=== PATIENT | male | born 1955 | race African-American/Black ===

== ENCOUNTER 2019-04-18 13:12 | Inpatient (IN) | payer MEDICAID ==
[~2019-04-18] VITALS: Ht 182.9 cm; Wt 84.8 kg
[2019-04-18] MEDS ORDERED: MORPHINE SULFATE 4 MG/ML CPJ (NOT FOR IM USE) IV STA (13:42)
[2019-04-18] MEDS ORDERED: ONDANSETRON HCL 4MG/2ML INJ IV STA (13:42)
[2019-04-18] MEDS ORDERED: NITROGLYCERIN OINT 1GM/INCH UDPKT TD ONE (13:45)
[2019-04-18] MEDS ORDERED: DILTIAZEM HCL 5MG/ML 5ML VIAL IV ONE (13:45)
[2019-04-18 14:17] LABS: BASOPHILS % 0.9 % (0.0-2.0); EOSINOPHILS % 4.8 % (0.0-5.0); HEMATOCRIT. 36.1 % (42.0-52.0); HEMOGLOBIN. 12.7 g/dL (14.0-18.0); LYMPHOCYTES % 34.3 % (20.0-50.0); MEAN CORPUSCULAR HEMOGLOBIN 35.3 pg (28.0-32.0); MEAN CORPUSCULAR VOLUME 100.3 fL (80.0-94.0); MEAN PLATELET VOLUME 9.4 fl (7.4-10.4); MONOCYTES % 9.3 % (2.0-8.0); NEUTROPHILS % 50.7 % (40.0-76.0); PLATELET 191 x1000/uL (130-400)
[2019-04-18 14:25] LABS: CHLORIDE 112 mEq/L (98-107); PARTIAL THROMBOPLASTIN TIME 34.8 sec (23.4-31.0); PROTHROMBIN TIME 10.5 sec (9.6-11.0)
[2019-04-18 14:32] LABS: ETHANOL BLOOD < 10 mg/dL
[2019-04-18 14:38] LABS: T4 FREE 0.86 ng/dL (0.76-1.46)
[2019-04-18] MEDS ORDERED: POTASSIUM CHLORIDE 20MEQ TABLET SR PO ONE (14:45)
[2019-04-18] MEDS ORDERED: FUROSEMIDE 20MG/2ML VIAL IVP ONE (14:45)
[2019-04-18] MEDS ORDERED: ENOXAPARIN 100MG/ML SYR SUBCUT ONE (15:00)
[2019-04-18 16:29] LABS: *AMPHETAMINES SCREEN URINE NEGATIVE (NEGATIVE); *BARBITURATES SCREEN URINE NEGATIVE (NEGATIVE); *BENZODIAZEPINES SCREEN URINE NEGATIVE (NEGATIVE); *COCAINE SCREEN URINE PRESUMTIVE POSITIVE (NEGATIVE)
[2019-04-18 16:30] LABS: CANNABINOID URINE SCREEN PRESUMTIVE POSITIVE (NEGATIVE); METHADONE URINE SCREEN NEGATIVE (NEGATIVE); OPIATES URINE SCREEN PRESUMTIVE POSITIVE (NEGATIVE); PHENCYCLIDINE URINE SCREEN NEGATIVE (NEGATIVE)
[2019-04-18] MEDS ORDERED: QUET300T2 MT (17:59)
[2019-04-18] MEDS ORDERED: PARO-41 MT (17:59)
[2019-04-18] MEDS ORDERED: CLONIDINE 0.1MG TABLET PO PRN (18:45)
[2019-04-18] MEDS ORDERED: MAGNESIUM/ALUMINUM HYDROXIDE/SIMETHICONE 30ML UDC PO PRN (18:45)
[2019-04-18] MEDS ORDERED: HYDROCODONE/ACETAMINOPHEN 5/325MG TABLET PO PRN (18:45)
[2019-04-18] MEDS ORDERED: ONDANSETRON HCL 4MG/2ML INJ IV PRN (18:45)
[2019-04-18] MEDS ORDERED: DOCUSATE SODIUM 100MG CAPSULE PO PRN (18:45)
[2019-04-18] MEDS ORDERED: GUAIFENESIN 200MG/10ML SUGAR FREE UDC PO PRN (18:45)
[2019-04-18] MEDS ORDERED: ACETAMINOPHEN 325MG TABLET PO PRN (18:45)
[2019-04-18] MEDS ORDERED: DILTIAZEM HCL 5MG/ML 5ML VIAL IV NR (19:00)
[2019-04-18 23:15] VITALS: BP 119/78
[2019-04-18 23:28] LABS: CREATINE KINASE 231 IU/L (39-308)
[2019-04-19] VITALS: BP 119/78
[2019-04-19 04:00] VITALS: BP 131/90
[2019-04-19 06:32] LABS: BASOPHILS % 0.9 % (0.0-2.0); EOSINOPHILS % 5.4 % (0.0-5.0); HEMATOCRIT. 38.3 % (42.0-52.0); HEMOGLOBIN. 13.2 g/dL (14.0-18.0); LYMPHOCYTES % 46.9 % (20.0-50.0); MEAN CORPUSCULAR HEMOGLOBIN 34.7 pg (28.0-32.0); MEAN CORPUSCULAR VOLUME 100.3 fL (80.0-94.0); MEAN PLATELET VOLUME 9.9 fl (7.4-10.4); MONOCYTES % 9.7 % (2.0-8.0); NEUTROPHILS % 37.1 % (40.0-76.0); PLATELET 198 x1000/uL (130-400); RED BLOOD CELL COUNT 3.82 mill/uL (4.7-6.1); RED CELL DISTRIBUTION WIDTH 13.9 % (11.6-14.6)
[2019-04-19 07:13] LABS: CHLORIDE 106 mEq/L (98-107)
[2019-04-19 07:24] LABS: CREATINE KINASE 209 IU/L (39-308)
[2019-04-19 07:25] LABS: HDL CHOLESTEROL 77 mg/dL (40-59)
[2019-04-19 07:26] LABS: LDL CHOLESTEROL 62 mg/dL (5-100)
[2019-04-19 08:39] VITALS: BP 136/97
[2019-04-19] MEDS: METOPROLOL TARTRATE 25MG TABLET PO SCH ×2 (09:20→21:00)
[2019-04-19 11:50] VITALS: BP 109/77
[2019-04-19] MEDS: QUETIAPINE FUMARATE 50MG TABLET PO SCH (12:07)
[2019-04-19] MEDS: PAROXETINE HCL 10MG TABLET PO SCH (12:07)
[2019-04-19] MEDS: NICOTINE 21MG PATCH TD SCH (12:07)
[2019-04-19] MEDS: APIXABAN 5 MG TABLET PO SCH ×2 (12:07→17:49)
[2019-04-19] MEDS: DILTIAZEM HCL 30MG TABLET PO SCH ×2 (12:08→17:45)
[2019-04-19 15:29] VITALS: BP 101/65
[2019-04-19 20:00] VITALS: BP 105/73
[2019-04-19] MEDS ORDERED: ENOXAPARIN 40MG/0.4ML SYR SUBCUT SCH (21:00)
[2019-04-20] VITALS: BP 101/63
[2019-04-20 04:00] VITALS: BP 153/103
[2019-04-20] MEDS: MORPHINE SULFATE 2 MG/ML CPJ (NOT FOR IM USE) IV PRN (05:31)
[2019-04-20] MEDS: DILTIAZEM HCL 30MG TABLET PO SCH ×4 (05:55→18:00)
[2019-04-20 08:00] VITALS: BP 139/61
[2019-04-20] MEDS: PAROXETINE HCL 10MG TABLET PO SCH (10:20)
[2019-04-20] MEDS: QUETIAPINE FUMARATE 50MG TABLET PO SCH (10:20)
[2019-04-20] MEDS: APIXABAN 5 MG TABLET PO SCH ×2 (10:20→17:33)
[2019-04-20] MEDS: METOPROLOL TARTRATE 25MG TABLET PO SCH ×2 (10:21→20:33)
[2019-04-20] MEDS: NICOTINE 21MG PATCH TD SCH (10:28)
[2019-04-20 12:00] VITALS: BP 94/55
[2019-04-20 16:00] VITALS: BP 111/62
[2019-04-20 20:28] VITALS: BP 110/66
[2019-04-20] MEDS: POTASSIUM CHLORIDE 20MEQ TABLET SR PO SCH (20:33)
[2019-04-21 00:12] VITALS: BP 112/74
[2019-04-21] MEDS: DILTIAZEM HCL 30MG TABLET PO SCH ×2 (00:47→06:00)
[2019-04-21 04:00] VITALS: BP 110/70
[2019-04-21] MEDS: MORPHINE SULFATE 2 MG/ML CPJ (NOT FOR IM USE) IV PRN (05:09)
[2019-04-21 07:06] LABS: CHLORIDE 108 mEq/L (98-107)
[2019-04-21 07:11] LABS: BASOPHILS % 0.7 % (0.0-2.0); EOSINOPHILS % 3.2 % (0.0-5.0); HEMATOCRIT. 38.4 % (42.0-52.0); HEMOGLOBIN. 13.1 g/dL (14.0-18.0); LYMPHOCYTES % 33.4 % (20.0-50.0); MEAN CORPUSCULAR HEMOGLOBIN 34.5 pg (28.0-32.0); MEAN CORPUSCULAR VOLUME 101.2 fL (80.0-94.0); MEAN PLATELET VOLUME 9.6 fl (7.4-10.4); MONOCYTES % 13.3 % (2.0-8.0); NEUTROPHILS % 49.4 % (40.0-76.0); PLATELET 202 x1000/uL (130-400); RED BLOOD CELL COUNT 3.79 mill/uL (4.7-6.1); RED CELL DISTRIBUTION WIDTH 13.7 % (11.6-14.6)
[2019-04-21] MEDS: NICOTINE 21MG PATCH TD SCH (09:39)
[2019-04-21] MEDS: APIXABAN 5 MG TABLET PO SCH (09:39)
[2019-04-21] MEDS: POTASSIUM CHLORIDE 20MEQ TABLET SR PO SCH (09:40)
[2019-04-21] MEDS: PAROXETINE HCL 10MG TABLET PO SCH (09:40)
[2019-04-21] MEDS: QUETIAPINE FUMARATE 50MG TABLET PO SCH (09:41)
[2019-04-21] MEDS: METOPROLOL TARTRATE 25MG TABLET PO SCH (09:42)
[2019-04-21 11:56] VITALS: BP 126/96
== END 2019-04-21 15:01 | disposition home or self-care (01) | DRG 201 ==
LOC: ER 13:12 → ENRESERV 21:45 → 6WST 22:56
PROVIDERS: ADMIT Hospitalist; ATTEND Hospitalist
DX: I48.91 Unspecified atrial fibrillation (principal); D68.59 Other primary thrombophilia; E87.5 Hyperkalemia; I48.92 Unspecified atrial flutter; E87.6 Hypokalemia; F43.10 Post-traumatic stress disorder, unspecified; I10 Essential (primary) hypertension; F41.0 Panic disorder [episodic paroxysmal anxiety]; F12.10 Cannabis abuse, uncomplicated; F14.10 Cocaine abuse, uncomplicated; Z71.51 Drug abuse counseling and surveillance of drug abuser; Z79.899 Other long term (current) drug therapy
CPT/HCPCS: 36415; 71045; 80053; 80061; 80305; 80320; 82550; 83735; 83880; 84439; 84443; 84481; 84484; 85025; 93005; 93306; 93970; 99291; J1650; J1940; J2270; J2405; J3490; G0480

== ENCOUNTER 2019-10-03 20:59 | Inpatient (IN) | payer MEDICAID ==
[~2019-10-03] VITALS: Ht 182.9 cm; Wt 77.6 kg
[~2019-10-03 20:59] MED LIST: PARO-41 MT; QUET300T2 MT
[2019-10-03 22:11] LABS: BASOPHILS % 0.2 % (0.0-2.0); HEMATOCRIT. 39.6 % (42.0-52.0); HEMOGLOBIN. 13.5 g/dL (14.0-18.0); LYMPHOCYTES % 13.6 % (20.0-50.0); MEAN CORPUSCULAR HEMOGLOBIN 34.6 pg (28.0-32.0); MEAN CORPUSCULAR VOLUME 101.7 fL (80.0-94.0); MEAN PLATELET VOLUME 9.2 fl (7.4-10.4); MONOCYTES % 8.3 % (2.0-8.0); NEUTROPHILS % 77.9 % (40.0-76.0); PLATELET 172 x1000/uL (130-400)
[2019-10-03 22:18] LABS: CHLORIDE 103 mEq/L (98-107)
[2019-10-03 22:22] LABS: INR 1.1; PARTIAL THROMBOPLASTIN TIME 35.8 sec (23.4-31.0); PROTHROMBIN TIME 11.6 sec (9.6-11.0)
[2019-10-03] MEDS ORDERED: SODIUM CHLORIDE 0.9% 500 ML IV ONE (22:30)
[2019-10-03] MEDS ORDERED: CEFTRIAXONE 1 G PREMIX 50 ML IV ONE (23:00)
[2019-10-03 23:51] LABS: CLARITY URINE CLEAR (CLEAR); COLOR URINE DARK YELLOW (YELLOW); KETONES URINE NEGATIVE (NEGATIVE); LEUKOCYTE ESTERASE URINE NEGATIVE (NEGATIVE); NITRITE URINE NEGATIVE (NEGATIVE); OCCULT BLOOD URINE NEGATIVE (NEGATIVE); PH URINE 6.5 (4.5-8.0); PROTEIN URINE TRACE (NEGATIVE)
[2019-10-04 00:04] LABS: *AMPHETAMINES SCREEN URINE NEGATIVE (NEGATIVE); *BARBITURATES SCREEN URINE NEGATIVE (NEGATIVE); *BENZODIAZEPINES SCREEN URINE NEGATIVE (NEGATIVE); *COCAINE SCREEN URINE PRESUMTIVE POSITIVE (NEGATIVE); CANNABINOID URINE SCREEN PRESUMTIVE POSITIVE (NEGATIVE); METHADONE URINE SCREEN NEGATIVE (NEGATIVE); OPIATES URINE SCREEN NEGATIVE (NEGATIVE); PHENCYCLIDINE URINE SCREEN NEGATIVE (NEGATIVE)
[2019-10-04] MEDS ORDERED: AZITHROMYCIN 500 MG in DEXT 5% WATER 250 ML IV SCH (00:30)
[2019-10-04] MEDS ORDERED: ASPIRIN 325MG EC TABLET PO ONE (01:00)
[2019-10-04] MEDS ORDERED: SODIUM CHLORIDE 0.9% 500 ML IV ONE (01:00)
[2019-10-04] MEDS ORDERED: HYDROCODONE/ACETAMINOPHEN 5/325MG TABLET PO ONE (02:30)
[2019-10-04] MEDS ORDERED: CLONIDINE 0.1MG TABLET PO PRN (09:15)
[2019-10-04] MEDS ORDERED: ONDANSETRON HCL 4MG/2ML INJ IV PRN (09:15)
[2019-10-04] MEDS ORDERED: DIPHENHYDRAMINE 50MG/ML VIAL IV PRN (09:15)
[2019-10-04] MEDS ORDERED: CEFTRIAXONE 1 G PREMIX 50 ML IV SCH (10:00)
[2019-10-04] MEDS: HYDROCODONE/ACETAMINOPHEN 5/325MG TABLET PO PRN ×2 (10:30→17:36)
[2019-10-04] MEDS: ENOXAPARIN 40MG/0.4ML SYR SUBCUT SCH (10:30)
[2019-10-04] MEDS ORDERED: DEXTROSE 50% WATER 50ML SYRINGE IV PRN (11:45)
[2019-10-04] MEDS: INSULIN LISPRO 100 UNITS/ML SUBCUT SCH ×3 (13:02→21:00)
[2019-10-04] MEDS: BLOOD SUGAR DIAGNOSTIC STRIP TEST SCH ×3 (13:02→22:36)
[2019-10-04] MEDS ORDERED: ALBUTEROL 6.7GM HFA INHALER ORI PRN (16:30)
[2019-10-04 18:20] LABS: FOLIC ACID (FOLATE) SERUM 6.6 ng/mL (>5.38)
[2019-10-04 20:30] VITALS: BP 120/80
[2019-10-04] MEDS: GUAIFENESIN 600MG ER TABLET PO SCH (21:01)
[2019-10-04] MEDS: QUETIAPINE FUMARATE 50MG TABLET PO SCH (23:15)
[2019-10-05] VITALS: BP 95/46
[2019-10-05] MEDS ORDERED: AZITHROMYCIN 500 MG in DEXT 5% WATER 250 ML IV SCH ×2 (01:00→09:00)
[2019-10-05] MEDS: IPRATROPIUM BROMIDE (0.02%) 0.5MG/2.5ML NEB HHN SCH (02:03)
[2019-10-05 04:00] VITALS: BP 101/59
[2019-10-05] MEDS: ACETAMINOPHEN 325MG TABLET PO PRN ×2 (04:55→17:17)
[2019-10-05 06:32] LABS: CHLORIDE 103 mEq/L (98-107)
[2019-10-05 06:37] LABS: HEMATOCRIT. 34.9 % (42.0-52.0); HEMOGLOBIN. 12.1 g/dL (14.0-18.0); MEAN CORPUSCULAR HEMOGLOBIN 34.9 pg (28.0-32.0); MEAN PLATELET VOLUME 10.1 fl (7.4-10.4); PLATELET 149 x1000/uL (130-400); RED BLOOD CELL COUNT 3.46 mill/uL (4.7-6.1)
[2019-10-05 06:39] LABS: LDL CHOLESTEROL 12 mg/dL (5-100)
[2019-10-05 06:40] LABS: HDL CHOLESTEROL 70 mg/dL (40-59)
[2019-10-05] MEDS: BLOOD SUGAR DIAGNOSTIC STRIP TEST SCH ×4 (07:40→21:25)
[2019-10-05 08:00] VITALS: BP 110/73
[2019-10-05] MEDS: INSULIN LISPRO 100 UNITS/ML SUBCUT SCH ×4 (08:10→21:00)
[2019-10-05] MEDS ORDERED: CEFTRIAXONE 1,000 MG in DEXTROSE 5% WATER 50 ML IV SCH (10:00)
[2019-10-05] MEDS: PAROXETINE HCL 10MG TABLET PO SCH (10:22)
[2019-10-05] MEDS: GUAIFENESIN 600MG ER TABLET PO SCH ×2 (10:22→20:47)
[2019-10-05] MEDS: ENOXAPARIN 40MG/0.4ML SYR SUBCUT SCH (10:23)
[2019-10-05] MEDS: CEFTRIAXONE 1,000 MG in DEXTROSE 5% WATER 50 ML IV SCH (10:23)
[2019-10-05] MEDS ORDERED: ENOXAPARIN 40MG/0.4ML SYR SUBCUT SCH (11:30)
[2019-10-05 12:00] VITALS: BP 120/69
[2019-10-05] MEDS ORDERED: POTASSIUM CHLORIDE 20MEQ TABLET SR PO SCH (13:30)
[2019-10-05] MEDS: DILTIAZEM HCL 60MG TABLET PO SCH ×2 (13:38→17:17)
[2019-10-05 13:57] LABS: PLATELET ESTIMATE NORMAL
[2019-10-05 16:00] VITALS: BP 105/68
[2019-10-05] MEDS: DIGOXIN 250MCG TABLET PO SCH (17:17)
[2019-10-05] MEDS ORDERED: IPRATROPIUM BROMIDE (0.02%) 0.5MG/2.5ML NEB HHN PRN (17:45)
[2019-10-05 20:00] VITALS: BP 93/58
[2019-10-05] MEDS: QUETIAPINE FUMARATE 50MG TABLET PO SCH (20:47)
[2019-10-05] MEDS: ENOXAPARIN 80MG/0.8ML SYR SUBCUT SCH (20:47)
[2019-10-06] VITALS: BP 103/59
[2019-10-06 04:00] VITALS: BP 124/81
[2019-10-06 05:26] LABS: BASOPHILS % 0.2 % (0.0-2.0); EOSINOPHILS % 1.6 % (0.0-5.0); HEMATOCRIT. 32.9 % (42.0-52.0); HEMOGLOBIN. 11.4 g/dL (14.0-18.0); LYMPHOCYTES % 8.1 % (20.0-50.0); MEAN CORPUSCULAR VOLUME 101.2 fL (80.0-94.0); MEAN PLATELET VOLUME 10.1 fl (7.4-10.4); MONOCYTES % 4.4 % (2.0-8.0); NEUTROPHILS % 85.7 % (40.0-76.0); PLATELET 167 x1000/uL (130-400); RED BLOOD CELL COUNT 3.25 mill/uL (4.7-6.1); RED CELL DISTRIBUTION WIDTH 13.9 % (11.6-14.6)
[2019-10-06] MEDS: DILTIAZEM HCL 60MG TABLET PO SCH ×4 (05:27→17:03)
[2019-10-06 05:29] LABS: CHLORIDE 104 mEq/L (98-107)
[2019-10-06] MEDS: BLOOD SUGAR DIAGNOSTIC STRIP TEST SCH ×4 (06:20→20:24)
[2019-10-06] MEDS: INSULIN LISPRO 100 UNITS/ML SUBCUT SCH ×4 (06:20→20:27)
[2019-10-06 08:00] VITALS: BP 111/69
[2019-10-06] MEDS: ENOXAPARIN 80MG/0.8ML SYR SUBCUT SCH (08:27)
[2019-10-06] MEDS: ACETAMINOPHEN 325MG TABLET PO PRN ×2 (08:28→17:03)
[2019-10-06] MEDS: GUAIFENESIN 600MG ER TABLET PO SCH ×2 (08:28→20:07)
[2019-10-06] MEDS: PAROXETINE HCL 10MG TABLET PO SCH (08:28)
[2019-10-06] MEDS: IPRATROPIUM BROMIDE (0.02%) 0.5MG/2.5ML NEB HHN SCH ×3 (10:16→20:50)
[2019-10-06] MEDS: CEFTRIAXONE 1,000 MG in DEXTROSE 5% WATER 50 ML IV SCH (11:18)
[2019-10-06 12:00] VITALS: BP 100/60
[2019-10-06 13:10] LABS: HIV SCREEN 4G Non Reactive (Non Reactive)
[2019-10-06 16:52] VITALS: BP 126/64
[2019-10-06] MEDS: DIGOXIN 250MCG TABLET PO SCH (17:03)
[2019-10-06] MEDS: APIXABAN 5 MG TABLET PO SCH (17:03)
[2019-10-06 20:00] VITALS: BP 128/77
[2019-10-06] MEDS: QUETIAPINE FUMARATE 50MG TABLET PO SCH (20:08)
[2019-10-06] MEDS: HYDROCODONE/ACETAMINOPHEN 5/325MG TABLET PO PRN (20:08)
[2019-10-07] VITALS: BP 142/80
[2019-10-07] MEDS: DILTIAZEM HCL 60MG TABLET PO SCH ×4 (01:00→16:34)
[2019-10-07] MEDS: IPRATROPIUM BROMIDE (0.02%) 0.5MG/2.5ML NEB HHN SCH ×4 (02:03→21:08)
[2019-10-07 04:00] VITALS: BP 122/75
[2019-10-07] MEDS: ACETAMINOPHEN 325MG TABLET PO PRN ×3 (04:26→19:57)
[2019-10-07] MEDS: BLOOD SUGAR DIAGNOSTIC STRIP TEST SCH ×4 (06:42→21:14)
[2019-10-07] MEDS: INSULIN LISPRO 100 UNITS/ML SUBCUT SCH ×4 (06:42→21:19)
[2019-10-07 07:26] LABS: BASOPHILS % 0.3 % (0.0-2.0); EOSINOPHILS % 0.8 % (0.0-5.0); HEMATOCRIT. 33.7 % (42.0-52.0); HEMOGLOBIN. 11.6 g/dL (14.0-18.0); LYMPHOCYTES % 9.5 % (20.0-50.0); MEAN CORPUSCULAR HEMOGLOBIN 34.9 pg (28.0-32.0); MEAN CORPUSCULAR VOLUME 101.2 fL (80.0-94.0); MEAN PLATELET VOLUME 9.7 fl (7.4-10.4); MONOCYTES % 12.6 % (2.0-8.0); NEUTROPHILS % 76.8 % (40.0-76.0); PLATELET 202 x1000/uL (130-400); RED BLOOD CELL COUNT 3.33 mill/uL (4.7-6.1); RED CELL DISTRIBUTION WIDTH 14.1 % (11.6-14.6)
[2019-10-07 07:58] LABS: CHLORIDE 106 mEq/L (98-107)
[2019-10-07 08:00] VITALS: BP 100/65
[2019-10-07] MEDS: GUAIFENESIN 600MG ER TABLET PO SCH ×2 (08:22→21:33)
[2019-10-07] MEDS: APIXABAN 5 MG TABLET PO SCH ×2 (08:22→16:33)
[2019-10-07] MEDS: PAROXETINE HCL 10MG TABLET PO SCH (08:23)
[2019-10-07 08:38] LABS: DIGOXIN 0.5 ng/mL (0.9-2.0)
[2019-10-07] MEDS: CEFTRIAXONE 1,000 MG in DEXTROSE 5% WATER 50 ML IV SCH (09:55)
[2019-10-07 12:00] VITALS: BP 138/78
[2019-10-07 16:00] VITALS: BP 133/90
[2019-10-07] MEDS: DIGOXIN 250MCG TABLET PO SCH (16:34)
[2019-10-07 20:00] VITALS: BP 144/85
[2019-10-07] MEDS: QUETIAPINE FUMARATE 50MG TABLET PO SCH (21:28)
[2019-10-08] VITALS: BP 117/74
[2019-10-08] MEDS: CEFAZOLIN 2,000 MG in DEXT 5% WATER 100 ML IV SCH ×4 (00:19→21:05)
[2019-10-08] MEDS: DILTIAZEM HCL 60MG TABLET PO SCH ×4 (00:19→18:27)
[2019-10-08] MEDS: IPRATROPIUM BROMIDE (0.02%) 0.5MG/2.5ML NEB HHN SCH ×5 (01:22→21:31)
[2019-10-08 04:00] VITALS: BP 118/61
[2019-10-08] MEDS: ACETAMINOPHEN 325MG TABLET PO PRN ×2 (05:49→12:24)
[2019-10-08] MEDS: BLOOD SUGAR DIAGNOSTIC STRIP TEST SCH ×4 (06:03→20:43)
[2019-10-08] MEDS: INSULIN LISPRO 100 UNITS/ML SUBCUT SCH ×4 (06:03→20:43)
[2019-10-08 06:58] LABS: BASOPHILS % 0.4 % (0.0-2.0); EOSINOPHILS % 0.8 % (0.0-5.0); HEMATOCRIT. 34.2 % (42.0-52.0); HEMOGLOBIN. 11.7 g/dL (14.0-18.0); LYMPHOCYTES % 8.6 % (20.0-50.0); MEAN CORPUSCULAR HEMOGLOBIN 34.4 pg (28.0-32.0); MEAN CORPUSCULAR VOLUME 100.3 fL (80.0-94.0); MEAN PLATELET VOLUME 9.9 fl (7.4-10.4); MONOCYTES % 14.8 % (2.0-8.0); NEUTROPHILS % 75.4 % (40.0-76.0); PLATELET 225 x1000/uL (130-400); RED BLOOD CELL COUNT 3.41 mill/uL (4.7-6.1); RED CELL DISTRIBUTION WIDTH 13.8 % (11.6-14.6)
[2019-10-08 07:11] LABS: CHLORIDE 104 mEq/L (98-107)
[2019-10-08 08:00] VITALS: BP 126/68
[2019-10-08] MEDS: PAROXETINE HCL 10MG TABLET PO SCH (09:19)
[2019-10-08] MEDS: APIXABAN 5 MG TABLET PO SCH ×2 (09:19→17:40)
[2019-10-08] MEDS: GUAIFENESIN 600MG ER TABLET PO SCH ×2 (09:19→20:43)
[2019-10-08 11:46] VITALS: BP 118/82
[2019-10-08 16:00] VITALS: BP 131/65
[2019-10-08] MEDS: DIGOXIN 250MCG TABLET PO SCH (18:27)
[2019-10-08] MEDS: QUETIAPINE FUMARATE 50MG TABLET PO SCH (20:43)
[2019-10-08 20:44] VITALS: BP 133/88
[2019-10-09] VITALS (7 sets, daily range): BP systolic 118–153; BP diastolic 64–96
[2019-10-09] MEDS: DILTIAZEM HCL 60MG TABLET PO SCH ×5 (00:18→23:28)
[2019-10-09] MEDS: CEFAZOLIN 2,000 MG in DEXT 5% WATER 100 ML IV SCH ×3 (05:39→22:48)
[2019-10-09] MEDS: BLOOD SUGAR DIAGNOSTIC STRIP TEST SCH (05:42)
[2019-10-09] MEDS: INSULIN LISPRO 100 UNITS/ML SUBCUT SCH (05:50)
[2019-10-09 07:06] LABS: CHLORIDE 103 mEq/L (98-107)
[2019-10-09 07:10] LABS: HEMATOCRIT. 33.2 % (42.0-52.0); HEMOGLOBIN. 11.4 g/dL (14.0-18.0); MEAN CORPUSCULAR HEMOGLOBIN 34.4 pg (28.0-32.0); MEAN CORPUSCULAR VOLUME 100.1 fL (80.0-94.0); MEAN PLATELET VOLUME 9.4 fl (7.4-10.4); PLATELET 249 x1000/uL (130-400); RED BLOOD CELL COUNT 3.32 mill/uL (4.7-6.1); RED CELL DISTRIBUTION WIDTH 14.5 % (11.6-14.6)
[2019-10-09] MEDS: APIXABAN 5 MG TABLET PO SCH ×2 (08:39→18:41)
[2019-10-09] MEDS: ACETAMINOPHEN 325MG TABLET PO PRN (08:40)
[2019-10-09] MEDS: PAROXETINE HCL 10MG TABLET PO SCH (08:40)
[2019-10-09] MEDS: IPRATROPIUM BROMIDE (0.02%) 0.5MG/2.5ML NEB HHN SCH ×3 (08:40→20:36)
[2019-10-09] MEDS: GUAIFENESIN 600MG ER TABLET PO SCH ×2 (08:40→20:27)
[2019-10-09 13:06] LABS: PLATELET ESTIMATE NORMAL
[2019-10-09] MEDS: DIGOXIN 250MCG TABLET PO SCH (18:41)
[2019-10-09] MEDS: QUETIAPINE FUMARATE 50MG TABLET PO SCH (20:27)
[2019-10-09] MEDS ORDERED: DOCUSATE SODIUM 250MG CAPSULE PO PRN (21:30)
[2019-10-09] MEDS ORDERED: HYDROCODONE/ACETAMINOPHEN 5/325MG TABLET PO PRN (21:30)
[2019-10-10] MEDS: IPRATROPIUM BROMIDE (0.02%) 0.5MG/2.5ML NEB HHN SCH ×4 (02:16→20:03)
[2019-10-10 04:00] VITALS: BP 94/53
[2019-10-10] MEDS: CEFAZOLIN 2,000 MG in DEXT 5% WATER 100 ML IV SCH ×3 (05:30→21:00)
[2019-10-10] MEDS: DILTIAZEM HCL 60MG TABLET PO SCH ×4 (05:30→17:10)
[2019-10-10 07:04] LABS: BASOPHILS % 0.5 % (0.0-2.0); HEMATOCRIT. 37.3 % (42.0-52.0); HEMOGLOBIN. 12.6 g/dL (14.0-18.0); LYMPHOCYTES % 15.6 % (20.0-50.0); MEAN CORPUSCULAR VOLUME 100.8 fL (80.0-94.0); MEAN PLATELET VOLUME 9.4 fl (7.4-10.4); NEUTROPHILS % 72.9 % (40.0-76.0); PLATELET 339 x1000/uL (130-400); RED BLOOD CELL COUNT 3.71 mill/uL (4.7-6.1); RED CELL DISTRIBUTION WIDTH 14.1 % (11.6-14.6)
[2019-10-10 07:15] LABS: CHLORIDE 102 mEq/L (98-107)
[2019-10-10 08:00] VITALS: BP 133/78
[2019-10-10] MEDS: GUAIFENESIN 600MG ER TABLET PO SCH ×2 (08:38→20:59)
[2019-10-10] MEDS: APIXABAN 5 MG TABLET PO SCH ×2 (08:38→17:10)
[2019-10-10] MEDS: PAROXETINE HCL 10MG TABLET PO SCH (08:38)
[2019-10-10 12:01] VITALS: BP 133/67
[2019-10-10] MEDS: ACETAMINOPHEN 325MG TABLET PO PRN (12:38)
[2019-10-10] MEDS ORDERED: SODIUM CHLORIDE 0.9% 1,000 ML IV SCH (14:00)
[2019-10-10 16:00] VITALS: BP 124/75
[2019-10-10] MEDS: DIGOXIN 250MCG TABLET PO SCH (17:10)
[2019-10-10 20:00] VITALS: BP 127/85
[2019-10-10] MEDS: QUETIAPINE FUMARATE 50MG TABLET PO SCH (20:59)
[2019-10-11] VITALS: BP 101/66
[2019-10-11 04:00] VITALS: BP 118/85
[2019-10-11] MEDS: DILTIAZEM HCL 60MG TABLET PO SCH ×4 (05:46→17:16)
[2019-10-11] MEDS: CEFAZOLIN 2,000 MG in DEXT 5% WATER 100 ML IV SCH ×3 (05:46→21:13)
[2019-10-11 06:36] LABS: BASOPHILS % 0.6 % (0.0-2.0); EOSINOPHILS % 1.9 % (0.0-5.0); HEMATOCRIT. 35.5 % (42.0-52.0); HEMOGLOBIN. 12.1 g/dL (14.0-18.0); LYMPHOCYTES % 15.7 % (20.0-50.0); MEAN CORPUSCULAR HEMOGLOBIN 34.5 pg (28.0-32.0); MEAN CORPUSCULAR VOLUME 101.4 fL (80.0-94.0); MONOCYTES % 9.1 % (2.0-8.0); NEUTROPHILS % 72.7 % (40.0-76.0); PLATELET 375 x1000/uL (130-400); RED BLOOD CELL COUNT 3.51 mill/uL (4.7-6.1); RED CELL DISTRIBUTION WIDTH 13.9 % (11.6-14.6)
[2019-10-11 06:51] LABS: CHLORIDE 103 mEq/L (98-107)
[2019-10-11 08:04] VITALS: BP 143/79
[2019-10-11] MEDS: GUAIFENESIN 600MG ER TABLET PO SCH ×2 (08:28→21:13)
[2019-10-11] MEDS: PAROXETINE HCL 10MG TABLET PO SCH (08:28)
[2019-10-11] MEDS: APIXABAN 5 MG TABLET PO SCH ×2 (08:28→17:16)
[2019-10-11] MEDS: IPRATROPIUM BROMIDE (0.02%) 0.5MG/2.5ML NEB HHN SCH ×3 (09:08→21:53)
[2019-10-11] MEDS ORDERED: IOHEXOL-300 100 ML BOTTLE ONE (10:36)
[2019-10-11 12:00] VITALS: BP 118/79
[2019-10-11] MEDS ORDERED: SODIUM CHLORIDE 0.9% 1,000 ML IV SCH (14:00)
[2019-10-11 16:00] VITALS: BP 130/79
[2019-10-11] MEDS: DIGOXIN 250MCG TABLET PO SCH (17:15)
[2019-10-11] MEDS ORDERED: APIX5TAB PO (18:28)
[2019-10-11] MEDS ORDERED: DILT240C91 MT (18:28)
[2019-10-11] MEDS ORDERED: DIGO-28 PO (18:28)
[2019-10-11] MEDS ORDERED: LEVO750T46 MT (18:28)
[2019-10-11 20:00] VITALS: BP 126/83
[2019-10-11] MEDS: QUETIAPINE FUMARATE 50MG TABLET PO SCH (21:13)
[2019-10-12 00:33] VITALS: BP 93/52
[2019-10-12 04:00] VITALS: BP 109/72
[2019-10-12] MEDS: IPRATROPIUM BROMIDE (0.02%) 0.5MG/2.5ML NEB HHN SCH ×2 (04:00→07:57)
[2019-10-12] MEDS: DILTIAZEM HCL 60MG TABLET PO SCH ×3 (05:29→12:11)
[2019-10-12] MEDS: CEFAZOLIN 2,000 MG in DEXT 5% WATER 100 ML IV SCH (05:35)
[2019-10-12 07:54] VITALS: BP 117/79
[2019-10-12 08:11] VITALS: BP 117/79
[2019-10-12] MEDS: GUAIFENESIN 600MG ER TABLET PO SCH (08:29)
[2019-10-12] MEDS: APIXABAN 5 MG TABLET PO SCH (08:29)
[2019-10-12] MEDS: PAROXETINE HCL 10MG TABLET PO SCH (08:30)
[2019-10-12 12:00] VITALS: BP 127/80
== END 2019-10-12 12:18 | disposition home or self-care (01) | DRG 720 ==
LOC: ER 20:59 → 7WST 10-04 06:01 → EDBEDREQ 10-04 06:03 → EDBEDREQTM 10-04 06:03 → EDBEDREQSVC 10-04 10:56 → ENRESERV 10-04 19:45 → 7WST 10-04 20:27 → UNDOADMIN 10-04 20:27 → 8WST 10-05 23:44
PROVIDERS: ADMIT Internal Medicine; ATTEND Internal Medicine
DX: A41.59 Other Gram-negative sepsis (principal); J15.6 Pneumonia due to other Gram-negative bacteria; I10 Essential (primary) hypertension; I42.9 Cardiomyopathy, unspecified; T40.5X1A Poisoning by cocaine, accidental (unintentional), initial encounter; D72.819 Decreased white blood cell count, unspecified; E78.5 Hyperlipidemia, unspecified; E87.2 Acidosis; F12.10 Cannabis abuse, uncomplicated; F43.10 Post-traumatic stress disorder, unspecified; I48.91 Unspecified atrial fibrillation; K80.20 Calculus of gallbladder without cholecystitis without obstruction; D53.9 Nutritional anemia, unspecified; J96.01 Acute respiratory failure with hypoxia; E80.6 Other disorders of bilirubin metabolism; N17.0 Acute kidney failure with tubular necrosis; J15.9 Unspecified bacterial pneumonia; I48.92 Unspecified atrial flutter; J68.0 Bronchitis and pneumonitis due to chemicals, gases, fumes and vapors; R73.9 Hyperglycemia, unspecified; R16.0 Hepatomegaly, not elsewhere classified; Z79.899 Other long term (current) drug therapy; Y92.89 Other specified places as the place of occurrence of the external cause; Z03.818 Encounter for observation for suspected exposure to other biological agents ruled out
CPT/HCPCS: 36415; 71045; 71250; 71260; 74177; 76700; 78227; 80048; 80053; 80061; 80162; 80305; 81003; 82607; 82728; 82746; 82962; 83036; 83605; 83615; 83735; 83880; 84100; 84145; 84443; 84484; 85025; 85379; 86141; 87077; 87186; 87389; 87635; 93005; 93306; 94640; 94667; 97161; 99291; A9537; J0456; J0690; J0696; J1650; J1815; J7040; J7060; Q9967

== ENCOUNTER 2020-06-29 08:47 | Emergency (ER) | payer MEDICAID ==
[~2020-06-29] VITALS: Ht 185.4 cm; Wt 73.0 kg
[~2020-06-29 08:47] MED LIST changes: +APIX5TAB PO; +DIGO-28 PO; +DILT240C91 MT; +LEVO750T46 MT
[2020-06-29 11:40] LABS: BASOPHILS % 0.9 % (0.0-2.0); EOSINOPHILS % 5.6 % (0.0-5.0); HEMATOCRIT. 38.6 % (42.0-52.0); HEMOGLOBIN. 13.5 g/dL (14.0-18.0); MEAN CORPUSCULAR HEMOGLOBIN 35.6 pg (28.0-32.0); MEAN PLATELET VOLUME 8.3 fl (7.4-10.4); MONOCYTES % 8.9 % (2.0-8.0); NEUTROPHILS % 38.6 % (40.0-76.0); PLATELET 216 x1000/uL (130-400); RED BLOOD CELL COUNT 3.78 mill/uL (4.7-6.1); RED CELL DISTRIBUTION WIDTH 13.7 % (11.6-14.6)
[2020-06-29 11:48] LABS: CHLORIDE 110 mEq/L (98-107)
[2020-06-29 11:52] LABS: ETHANOL BLOOD 180 mg/dL
[2020-06-29 14:18] VITALS: BP 133/97
== END 2020-06-29 14:19 | disposition home or self-care (01) ==
LOC: ER 08:47
DX: F10.129 Alcohol abuse with intoxication, unspecified (principal); Y90.6 Blood alcohol level of 120-199 mg/100 ml; F43.10 Post-traumatic stress disorder, unspecified; I11.0 Hypertensive heart disease with heart failure; I50.9 Heart failure, unspecified; I48.91 Unspecified atrial fibrillation; F14.10 Cocaine abuse, uncomplicated; F12.90 Cannabis use, unspecified, uncomplicated; Z79.01 Long term (current) use of anticoagulants; Z79.899 Other long term (current) drug therapy
CPT/HCPCS: 36415; 80053; 80320; 85025; 93005; 99284; G0480

== ENCOUNTER 2020-07-15 15:02 | Emergency (ER) | payer MEDICAID ==
[~2020-07-15] VITALS: Ht 182.9 cm; Wt 90.0 kg
[2020-07-15] MEDS ORDERED: HYDROCODONE/ACETAMINOPHEN 5/325MG TABLET PO ONE (15:45)
[2020-07-15] MEDS ORDERED: LIDOCAINE HCL/EPINEPHRINE 1%-EPI 1:100,000 10 ML VIAL IJ ONE (15:45)
[2020-07-15] MEDS ORDERED: LIDOCAINE HCL/EPINEPHRINE 1%-EPI 1:100,000 20 ML VIAL INFIL NR (15:47)
[2020-07-15 16:35] VITALS: BP 151/107
[2020-07-15] MEDS ORDERED: SULF1TAB48 MT (17:18)
[2020-07-15] MEDS ORDERED: CEPH500T MT (17:18)
[2020-07-15] MEDS ORDERED: T3 PO (17:18)
[2020-07-19] MEDS ORDERED: DILT180C66 MT (15:09)
[2020-07-19] MEDS ORDERED: APIX5TAB PO (15:09)
[2020-07-20] MEDS ORDERED: AMOX-424 MT (13:22)
== END 2020-07-15 17:31 | disposition home or self-care (01) ==
LOC: ER 15:02
DX: L02.414 Cutaneous abscess of left upper limb (principal); I11.9 Hypertensive heart disease without heart failure; I48.91 Unspecified atrial fibrillation; Z79.01 Long term (current) use of anticoagulants
CPT/HCPCS: 99283; J3490; Z7610

== ENCOUNTER 2020-10-16 17:25 | Emergency (ER) | payer MEDICAID ==
[~2020-10-16] VITALS: Ht 190.5 cm; Wt 100.0 kg
[~2020-10-16 17:25] MED LIST changes: +AMOX-424 MT; +CEPH500T MT; +DILT180C66 MT; -LEVO750T46 MT; +SULF1TAB48 MT; +T3 PO
[2020-10-16] MEDS ORDERED: HYDROCODONE/ACETAMINOPHEN 5/325MG TABLET PO ONE (19:30)
[2020-10-16 22:00] VITALS: BP 140/76
[2020-10-16] MEDS ORDERED: IBUP-2029 MT (22:11)
[2020-10-16] MEDS ORDERED: AMOX-424 MT (22:11)
== END 2020-10-16 22:59 | disposition home or self-care (01) ==
LOC: ER 17:25
DX: S02.85XA Fracture of orbit, unspecified, initial encounter for closed fracture (principal); S80.01XA Contusion of right knee, initial encounter; S40.012A Contusion of left shoulder, initial encounter; I48.91 Unspecified atrial fibrillation; I10 Essential (primary) hypertension; F14.10 Cocaine abuse, uncomplicated; F12.10 Cannabis abuse, uncomplicated; Z79.899 Other long term (current) drug therapy; Y04.0XXA Assault by unarmed brawl or fight, initial encounter; Y93.89 Activity, other specified; Y92.89 Other specified places as the place of occurrence of the external cause; Y99.8 Other external cause status
CPT/HCPCS: 70486; 73030; 73562; 99285